=== PATIENT | male | born 1990 ===

== ENCOUNTER 2016-04-17 22:11 | Emergency (ER) | payer OTHER ==
[2016-04-17 22:20] VITALS: BP 123/71; PULSE 98; TEMP 99.2; BMI 28.6
--- NOTE | 2016-04-17 22:34 | PDOC ---
History of Present Illness - General Chief Complaint: Cold Symptoms Stated Complaint: COUGH - History of Present Illness Initial Comments: This 26-year-old man without previous medical history presents with his having a cough productive of yellowish sputum for the last 3-4 days. Patient is mainly Romanian speaking and his is the planner scheduler. Current illness began as a sore throat with cough developing rapidly. No fever/chills. No history of wheezing or shortness of breath. Patient states that he is having difficulty sleeping because of persistent cough. No history of strep pharyngitis as an adult and no exposure to school-aged children. No history of other associated symptoms; no vomiting/diarrhea. Patient is a half pack per day smoker; no history of asthma or other chronic respiratory illnesses No medications No known ALLERGIES Past History - Past Medical History Allergies/Adverse Reactions: Allergies Allergy/AdvReac Type Severity Reaction Status Date / Time No Known Allergies Allergy Unverified 04/17/16 22:17 Home Medications: Ambulatory Orders Azithromycin [Zithromax 250mg Tablets -] 250 mg PO UTDICT #6 tab 04/17/16 Hydrocodone Bit/Homatrop Me-Br [Hydrocodone-Homatropine Syrup] 5 ml PO QID PRN # 60 ml MDD 20 ml 04/17/16 Other medical history: DENIES - Psycho/Social/Smoking Cessation Hx Anxiety: No Suicidal Ideation: No Smoking History: Current every day smoker Have you smoked in the past 12 months: Yes Number of Cigarettes Smoked Daily: 10 Information on smoking cessation initiated: Yes 'Breaking Loose' booklet given: 04/17/16 Review of Systems - Review of Systems Able to Perform ROS?: Yes Comments:: 12 point review of systems is negative except for what is noted in the history of present illness *Physical Exam - Vital Signs Last Vital Signs Temp Pulse Resp BP Pulse Ox 99.2 F 98 H 16 123/71 98 04/17/16 22:18 04/17/16 22:18 04/17/16 22:18 04/17/16 22:18 04/17/16 22:18 - Physical Exam Comments: GENERAL: The patient is awake, alert, and fully oriented, in no acute distress. Vital signs as noted. HEAD: Normal with no signs of trauma. EYES: Pupils equal, round and reactive to light, extraocular movements intact, sclera anicteric, conjunctiva clear with no pallor. ENT: moist mucous membranes. Ears normal, nares patent, oropharynx moderately erythematous without edema or exudates. NECK: Normal range of motion, supple without lymphadenopathy, JVD, or masses. LUNGS: Breath sounds equal, clear to auscultation bilaterally. No wheeze/ crackles. HEART: Regular rate and rhythm, normal S1 and S2 without murmur or rub. ABDOMEN: Soft/nontender/nondistended. BS wnl. No guarding or rebound. No palpable masses. No hepatosplenomegaly. EXTREMITIES: Normal range of motion, no edema. No clubbing or cyanosis. No cords, erythema, or tenderness. NEUROLOGICAL: Cranial nerves II through XII grossly intact. Normal speech, normal gait. PSYCH: Normal mood, normal affect. SKIN: Warm, Dry, normal turgor, no rashes or lesions noted. Progress Note - Progress Note Progress Note: This 26-year-old man, smoker but no history of asthma or other respiratory illnesses, presents with productive cough for the last several days. He denies wheezing or shortness of breath; his most disabling symptom is nocturnal cough, keeping him awake most of the night. Exam shows no fever currently with good oxygen saturation; he is in no acute respiratory distress. Lungs are clear on auscultation Clinical presentation most consistent with acute bronchitis in a smoker. Patient will be started on azithromycin Z-Demarco. Also, patient should drink plenty of fluids and, since cough is particularly bothersome at night, prescription for hydrocodone homatropine syrup will be sent to patient's pharmacy. He should take 1 teaspoon up to 4 times a day for persisting cough. He has been advised that, since this is a narcotic, he will feel sleepy and has to refrain from any activity requiring full extension after taking this medication. He should return to the emergency room if he has high fever or shortness of breath *DC/Admit/Observation/Transfer Diagnosis at time of Disposition: Acute bronchitis Qualifiers: Bronchitis organism: other organism Qualified Code(s): J20.8 - Acute bronchitis due to other specified organisms - Discharge Dispostion Disposition: HOME Condition at time of disposition: Stable - Prescriptions Prescriptions: Hydrocodone Bit/Homatrop Me-Br [Hydrocodone-Homatropine Syrup] 5 ml PO QID PRN # 60 ml MDD 20 ml PRN Reason: Cough Azithromycin [Zithromax 250mg Tablets -] 250 mg PO UTDICT #6 tab - Referrals Referrals: Josh Pacheco MD [Primary Care Provider] - - Patient Instructions Printed Discharge Instructions: DI for Acute Bronchitis Additional Instructions: Rest; drink plenty of fluids avoid smoking Azithromycin (Zpak);taper as directed Hydrocodone/Homatropine syrup: 1 teaspoon up to 4 X day for severe cough return if you have severe cough or shortness of breath followup with Dr Pacheco within 1 week
== END 2016-04-17 23:26 | disposition home or self-care (01) ==
LOC: FER 22:11
DX: J20.8 Acute bronchitis due to other specified organisms (principal); F17.210 Nicotine dependence, cigarettes, uncomplicated
CPT/HCPCS: 99281-25

== ENCOUNTER 2016-04-20 23:28 | Emergency (ER) | payer OTHER ==
[2016-04-20 23:38] VITALS: BP 123/82; PULSE 94; TEMP 98.7; BMI 29.5
[2016-04-21] MEDS ORDERED: AMOX TR/POT CLAV 875MG/125MG TABLETS (FP) PO ONE (00:23)
[2016-04-21] MEDS ORDERED: AMOX TR/POT CLAV 875MG/125MG TABLETS (FP) ONE (00:24)
--- NOTE | 2016-04-21 00:29 | PDOC ---
History of Present Illness - General Chief Complaint: Pain, Acute Stated Complaint: SINUS PAIN/COUGH Time Seen by Provider: 04/20/16 23:48 - History of Present Illness Initial Comments: This otherwise healthy, mainly German speaking 26-year-old man presents to the ER accompanied by his (who is acting as his team member). He had been seen here 3 days ago with nonproductive cough. At that time, because patient was smoker and had persistent cough, and he was started on azithromycin Zpak. According to , patient has one dose left of the azithromycin to be taken tomorrow. Patient continues to have nonproductive cough that is at times hacking according to patient's . He also has developed facial pain, nasal congestion and scant nasal discharge (yellowish). No previous history of acute sinusitis. No fever/chills, shortness of breath, wheezing reported. Patient states that he has not had smoked cigarettes since his last visit to the ER during which time he was advised to avoid smoking. Past History - Past Medical History Allergies/Adverse Reactions: Allergies Allergy/AdvReac Type Severity Reaction Status Date / Time No Known Allergies Allergy Verified 04/20/16 23:33 Home Medications: Ambulatory Orders Azithromycin [Zithromax 250mg Tablets -] 250 mg PO UTDICT #6 tab 04/17/16 Amoxicillin/Potassium Clav [Augmentin 875-125 Tablet] 1 each PO BID #14 tablet 04/21/16 Hydrocodone Bit/Homatrop Me-Br [Hydrocodone-Homatropine Syrup] 5 ml PO QID PRN # 60 ml MDD 20 ml 04/21/16 Other medical history: DENIES - Psycho/Social/Smoking Cessation Hx Anxiety: No Suicidal Ideation: No Smoking History: Current every day smoker Have you smoked in the past 12 months: Yes Number of Cigarettes Smoked Daily: 10 Information on smoking cessation initiated: Yes 'Breaking Loose' booklet given: 04/17/16 Hx Alcohol Use: Yes (OCCAS) Drug/Substance Use Hx: No Substance Use Type: None Review of Systems - Review of Systems Able to Perform ROS?: Yes Comments:: 12 point review of systems is negative except for what is noted in the history of present illness *Physical Exam - Vital Signs Last Vital Signs Temp Pulse Resp BP Pulse Ox 98.7 F 94 H 16 123/82 98 04/20/16 23:34 04/20/16 23:34 04/20/16 23:34 04/20/16 23:34 04/20/16 23:34 - Physical Exam Comments: GENERAL: HEAD: Normal with no signs of trauma.;moderate tenderness bilateral frontal sinus areas, mild maxillary tenderness EYES: PERRLA, EOMI, sclera anicteric, conjunctiva clear. ENT: Ears normal, nares patent, oropharynx clear without exudates. Dry mucous membranes. NECK: Normal range of motion, supple without lymphadenopathy, JVD, or masses. LUNGS: Breath sounds equal, clear to auscultation bilaterally. No wheezes, and no crackles. HEART:Regular rate and rhythm, normal S1 and S2 without murmur, rub or gallop. ABDOMEN:.normal bowel sounds No guarding,tenderness or rebound.No masses No distention. EXTREMITIES: Normal range of motion, no edema. No clubbing or cyanosis. No erythema, or tenderness. NEUROLOGICAL: Cranial nerves II through XII grossly intact. Normal speech. No focal neurological deficits. MUSCULOSKELETAL: Back non-tender to palpation, no CVA tenderness SKIN: Warm, Dry, normal turgor, no rashes or lesions noted. Progress Note - Progress Note Progress Note: This 26-year-old man on the fourth day of his azithromycin Z-Demarco course, presents with persisting cough and new facial tenderness. He also describes some scant purulent nasal discharge. It was explained to the patient and his that azithromycin formulation in the Z-Demarco will result in antibiotic being present and patient's body for a full 10 days although they are taking only 5 days of the antibiotic. However, since he now has facial pain/tenderness and purulent nasal discharge, he will be started on Augmentin for one week (875/125 twice a day for 7 days). Antihistamine/decongestant was also suggested to the patient, as well as humidification within his room at night. The patient does have PMD (Dr. Josh Pacheco) with whom he should follow up within 1 week. If he has shortness of breath/wheezing or severe cough he should return to the emergency room *DC/Admit/Observation/Transfer Diagnosis at time of Disposition: Sinusitis Qualifiers: Sinusitis location: frontal Chronicity: acute Recurrence: non-recurrent Qualified Code(s): J01.10 - Acute frontal sinusitis, unspecified - Discharge Dispostion Disposition: HOME Condition at time of disposition: Stable - Prescriptions Prescriptions: Amoxicillin/Potassium Clav [Augmentin 875-125 Tablet] 1 each PO BID #14 tablet Hydrocodone Bit/Homatrop Me-Br [Hydrocodone-Homatropine Syrup] 5 ml PO QID PRN # 60 ml MDD 20 ml PRN Reason: Cough - Referrals Referrals: Josh Pacheco MD [Staff Physician] - - Patient Instructions Printed Discharge Instructions: DI for Sinusitis Additional Instructions: stop azithromycin drink plenty of fluids Augmentin 875/325 twice a day for one week(take with food) OTC antihistamine/decongestant as needed use in room humidifier at night continue to avoid smoking followup with Dr Pacheco within 1 week no work tomorrow - Post Discharge Activity Work/School Note: Back to Work
== END 2016-04-21 00:37 | disposition home or self-care (01) ==
LOC: FER 23:28
DX: J01.10 Acute frontal sinusitis, unspecified (principal); F17.210 Nicotine dependence, cigarettes, uncomplicated
CPT/HCPCS: 99281-25

== ENCOUNTER 2016-08-02 19:06 | Emergency (ER) | payer OTHER ==
[2016-08-02 19:17] VITALS: BP 115/65; PULSE 82; TEMP 98; BMI 30.4
--- NOTE | 2016-08-02 19:39 | PDOC ---
History of Present Illness <Annita Upton I - Last Filed: 08/02/16 19:37> - General History Source: Patient, Significant Other Exam Limitations: No Limitations - History of Present Illness Initial Comments: 08/02/16 19:46 The patient is a 26 year old male, with no significant past medical history, who presents today complaining of burning and stinging occurring after a bowel movement for 3 weeks. The patients states that he has 2 or 3 bowel movements a day, and the burning begins after the bowel movement. There is sometimes blood on the toilet paper. The burning was so bothersome today that the patient had to leave work early. He notes that he eats a lot of spicy food. Denies fever, chills, nausea, vomiting. Denies abdominal pain. Allergies: none reported Review of systems General: No fevers or chills, no weakness, no weight loss HEENT: No change in vision. No sore throat,. No ear pain CardioVascular: No chest pain or shortness of breath Respiratory:No cough, or wheezing. Gastrointestinal: +burning after bowel movement. no nausea, vomiting, diarrhea or constipation, No rectal bleeding Genitourinary: No dysuria, hematuria, or frequency Musculoskeletal: No joint or muscle pain or swelling Neurologic: No headache, vertigo, dizziness or loss of consciousness Psychiatric: nor depression Skin: No rashes or easy bruising Endocrine: no increased thirst or abnormal weight change Allergic: no skin or latex allergy All other systems reviewed and normal Physical Exam GENERAL: The patient is awake, alert, and fully oriented, in no acute distress. HEAD: Normal with no signs of trauma. EYES: Pupils equal, round and reactive to light, extraocular movements intact, sclera anicteric, conjunctiva clear. RECTAL: No visible external hemorrhoids. No visible blood. There is a small hemorrhoids at approximately at 4 o'clock. There is a larger hemorrhoid at 11 o' clock. The larger hemorrhoid is tender on palpation. There is no gross blood on exam. Rectal vault empty of stool. EXTREMITIES: Normal range of motion, no edema. NEUROLOGICAL: Normal speech, normal gait. PSYCH: Normal mood, normal affect. SKIN: Warm, Dry, normal turgor, no rashes or lesions noted. <Lona Lea - Last Filed: 08/02/16 19:47> - General Chief Complaint: Pain, Acute Stated Complaint: PAIN AFTER BM X 3 WEEKS Time Seen by Provider: 08/02/16 19:19 Past History - Past Medical History Other medical history: DENIES - Psycho/Social/Smoking Cessation Hx Anxiety: No Suicidal Ideation: No Smoking History: Current every day smoker Have you smoked in the past 12 months: Yes Number of Cigarettes Smoked Daily: 10 Information on smoking cessation initiated: Yes 'Breaking Loose' booklet given: 08/02/16 Hx Alcohol Use: Yes (TWICE A WEEK) Drug/Substance Use Hx: No Substance Use Type: None <Annita Upton I - Last Filed: 08/02/16 19:37> <Lona Lea - Last Filed: 08/02/16 19:47> - Past Medical History Allergies/Adverse Reactions: Allergies Allergy/AdvReac Type Severity Reaction Status Date / Time No Known Allergies Allergy Verified 08/02/16 19:09 Home Medications: Ambulatory Orders NK [No Known Home Medication] 08/02/16 *Physical Exam - Vital Signs Last Vital Signs Temp Pulse Resp BP Pulse Ox 98 F 82 16 115/65 100 08/02/16 19:12 08/02/16 19:12 08/02/16 19:12 08/02/16 19:12 08/02/16 19:12 <Annita Upton I - Last Filed: 08/02/16 19:37> - Vital Signs Last Vital Signs Temp Pulse Resp BP Pulse Ox 98 F 82 16 115/65 100 08/02/16 19:12 08/02/16 19:12 08/02/16 19:12 08/02/16 19:12 08/02/16 19:12 <Lona Lea - Last Filed: 08/02/16 19:47> *DC/Admit/Observation/Transfer - Discharge Dispostion Admit: No <Annita Upton I - Last Filed: 08/02/16 19:37> - Attestations Scribe Attestion: 08/02/16 19:47 Documentation prepared by NICOLASA Alcala, acting as medical psychotherapist for Annita Upton MD. <Lona Lea - Last Filed: 08/02/16 19:47> Diagnosis at time of Disposition: Acute hemorrhoid - Discharge Dispostion Disposition: HOME Condition at time of disposition: Stable - Patient Instructions Printed Discharge Instructions: Hemorrhoids (Alternative Therapy), Hemorrhoids , Smoking Cessation Additional Instructions: Increase the fiber in your diet and eat plenty of fruits to keep her stool soft. You can also buy an [id number] stool softener. Potter diet is best a spicy diet will make the hemorrhoid burn and hurt more when you have a bowel movement. Return to the emergency department immediately with ANY new, persistent or worsening symptoms. Continue any medications as previously prescribed by your physician. You should follow up with your primary doctor as soon as possible regarding today's emergency department visit. . Please make sure your doctor reviews the results of your emergency evaluation. Thank you for coming to the Emergency Department today for your care. It was a pleasure to see you today. Please note that your evaluation is INCOMPLETE until you follow-up with your doctor.
== END 2016-08-02 19:43 | disposition home or self-care (01) ==
LOC: FER 19:06
DX: K64.8 Other hemorrhoids (principal)
CPT/HCPCS: 99281-25

== ENCOUNTER 2019-04-21 18:58 | Emergency (ER) | payer SELFPAY ==
[2019-04-21 19:32] VITALS: BP 134/87; PULSE 82; TEMP 98.4; BMI 29.5
[2019-04-21] MEDS ORDERED: KETOROLAC TROMETHAMINE 60 MG/2 ML VIAL IM ONE (19:43)
[2019-04-21] MEDS ORDERED: KETOROLAC TROMETHAMINE 60 MG/2 ML VIAL ONE (19:49)
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
== END 2019-04-21 20:36 | disposition home or self-care (01) ==
LOC: FER 18:58
PROC: 3E0233Z Introduction of Anti-inflammatory into Muscle, Percutaneous Approach (ICD-10-PCS; principal; 2019-04-21)
DX: S39.012A Strain of muscle, fascia and tendon of lower back, initial encounter (principal); V43.52XA Car driver injured in collision with other type car in traffic accident, initial encounter; Y93.89 Activity, other specified; Y92.410 Unspecified street and highway as the place of occurrence of the external cause
CPT/HCPCS: 72100-TC-FY; 81003; 99282-25